=== PATIENT | female | born 1995 | race Caucasian/White ===

== ENCOUNTER 2018-04-20 11:31 | Emergency (ER) | payer MEDICAID ==
[2018-04-20] MEDS ORDERED: Alum Hydrox/Mag Hydrox/Simeth 15 ML, Lidocaine 2% 15 ML PO ONE ×2 (13:33)
--- NOTE | 2018-04-20 13:35 | EDM.PDOC ---
ED HPI GENERAL MEDICAL PROBLEM - General Chief Complaint: Abdominal Pain Stated Complaint: ABDOMINAL PAIN Time Seen by Provider: 04/20/18 13:21 Source of Information: Reports: Patient History Limitations: Reports: No Limitations - History of Present Illness INITIAL COMMENTS - FREE TEXT/NARRATIVE: 22 yo female presents with epigastric pain. sudden onset this AM when she was eating breakfast was unable to finish. pain not relieved with pepto bismal. LMP was 4 weeks ago. LM this AM was normal and formed. Mildly nauseated without emesis. denies headache, fever, chills, SOB, dysuria Left Upper Abdomen Pain Score (Numeric/FACES): 3 - Related Data Allergies Allergy/AdvReac Type Severity Reaction Status Date / Time No Known Allergies Allergy Verified 04/20/18 13:18 Home Meds: Home Meds * Control Pills 1 tab PO DAILY 04/20/18 [History] Past Medical History HEENT History: Reports: Impaired Vision Respiratory History: Reports: Asthma - Past Surgical History HEENT Surgical History: Reports: Adenoidectomy, Tonsillectomy Social & Family History - Tobacco Use Smoking Status *Q: Never Smoker Second Hand Smoke Exposure: No - Caffeine Use Caffeine Use: Reports: Soda - Alcohol Use Days Per Week of Alcohol Use: 0 - Recreational Drug Use Recreational Drug Use: No ED ROS GENERAL - Review of Systems Review Of Systems: See Below Constitutional: Denies: Fever, Chills Respiratory: Denies: Shortness of Breath, Wheezing Cardiovascular: Denies: Chest Pain GI/Abdominal: Reports: Abdominal Pain, Nausea. Denies: Constipation, Diarrhea : Denies: Dysuria, Flank Pain, Frequency, Hematuria Skin: Denies: Rash ED EXAM, GI/ABD - Physical Exam Exam: See Below Exam Limited By: No Limitations General Appearance: Alert, WD/WN, No Apparent Distress Respiratory/Chest: No Respiratory Distress, Lungs Clear, Normal Breath Sounds. No: Crackles, Rhonchi, Wheezing Cardiovascular: Regular Rate, Rhythm, No Murmur GI/Abdominal Exam: Soft, No Organomegaly, No Distention, Tender (epigastric), Other (hyperactive bowel sounds) Back Exam: No: CVA Tenderness (R), CVA Tenderness (L) Neurological: Alert, Oriented Psychiatric: Normal Affect, Normal Mood Skin Exam: Warm, Dry, Intact. No: Rash Course - Vital Signs Last Recorded V/S: Last Vital Signs Temp 36.8 C 04/20/18 13:16 Pulse 65 04/20/18 13:16 Resp 14 04/20/18 13:16 BP 137/78 04/20/18 13:16 Pulse Ox 98 04/20/18 13:16 - Orders/Labs/Meds Labs: Laboratory Tests 04/20/18 04/20/18 Range/Units 13:42 13:42 WBC 8.8 (4.5-11.0) K/uL RBC 4.27 (3.30-5.50) M/uL Hgb 13.0 (12.0-15.0) g/dL Hct 37.0 (36.0-48.0) % MCV 87 (80-98) fL MCH 30 (27-31) pg MCHC 35 (32-36) % Plt Count 256 (150-400) K/uL Neut % (Auto) 71 H (36-66) % Lymph % (Auto) 21 L (24-44) % Avery % (Auto) 7 H (2-6) % Eos % (Auto) 2 (2-4) % Baso % (Auto) 0 (0-1) % Sodium 141 (140-148) mmol/L Potassium 3.8 (3.6-5.2) mmol/L Chloride 106 (100-108) mmol/L Carbon Dioxide 27 (21-32) mmol/L Anion Gap 7.7 (5.0-14.0) mmol/L BUN 13 (7-18) mg/dL Creatinine 0.9 (0.6-1.0) mg/dL Est Cr Clr Drug Dosing 81.79 mL/min Estimated GFR (MDRD) > 60 (>60) Glucose 84 (74-106) mg/dL Calcium 8.2 L (8.5-10.1) mg/dL Total Bilirubin 0.2 (0.2-1.0) mg/dL AST 17 (15-37) U/L ALT 28 (12-78) U/L Alkaline Phosphatase 44 L (46-116) U/L Total Protein 6.6 (6.4-8.2) g/dL Albumin 3.3 L (3.4-5.0) g/dL Globulin 3.3 (2.3-3.5) g/dL Albumin/Globulin Ratio 1.0 L (1.2-2.2) Meds: Medications Discontinued Medications Generic Name Dose Route Start Last Admin Trade Name Ray PRN Reason Stop Dose Admin Al Hydroxide/Mg Hydroxide 15 0 ml 04/20/18 13:33 04/20/18 13:46 ml/ Lidocaine HCl 15 ml PO 04/20/18 13:34 15 ml ONETIME ONE Administration - Re-Assessments/Exams Free Text/Narrative Re-Assessment/Exam: 04/20/18 14:51 relief after GI cocktail Departure - Departure Time of Disposition: 14:28 Disposition: Home, Self-Care 01 Condition: Good Clinical Impression: Gastroenteritis - Discharge Information Instructions: Gastritis, Adult, [id number] Referrals: PCP,None [Primary Care Provider] - Forms: ED Department Discharge Additional Instructions: BLand diet advance as tolerated Utilize Tums if needed for pain relief follow-up with primary care provider if pain continue
== END 2018-04-20 14:35 | disposition home or self-care (01) ==
LOC: JP.ED 11:31
DX: K52.9 Noninfective gastroenteritis and colitis, unspecified (principal); Z79.899 Other long term (current) drug therapy
CPT/HCPCS: 36415; 80053; 85025; 99284; A9270